=== PATIENT | female | born 1980 | race Caucasian/White ===

== ENCOUNTER 2019-03-24 11:30 | Inpatient (IN) ==
[2019-03-24 12:27] LABS: BASO# 0.03 X1000 (0.0-0.2); BASO% 0.2 % (0.0-0.8); EOS# 0.14 X1000 (0.0-0.7); EOS% 0.9 % (0.0-10.0); HEMATOCRIT 46.1 % (37.0-47.0); IMM GRAN# 0.07 X1000 (0.0-0.04); IMM GRAN% 0.5 % (0.0-0.5); LYMPH# 1.53 X1000 (1.2-3.4); LYMPH% 9.9 % (20.5-51.1); MCH 34.5 PG (27-31); MCHC 34.7 g/dL (33-37); MCV 99.4 FL (81-99); MONO# 0.57 X1000 (0.11-0.59); MONO% 3.7 % (1.7-9.3); MPV 10.1 FL (7.4-10.4); NEUT# 13.11 X1000 (1.4-6.5); NEUT% 84.8 % (42.2-75.2); PLT 174 X1000 (130-400); RBC 4.64 XMIL (4.2-5.4); RDW 13.7 % (11.5-14.5); WBC 15.45 X1000 (4.8-10.8)
[2019-03-24 12:32] LABS: INR 1.08; PROTIME 14.2 Seconds (11.0-16.0)
[2019-03-24 12:33] LABS: PTT 28.9 Seconds (22.3-41.8)
[2019-03-24 12:46] LABS: AGAP 18; ALB/GLOB RATIO 1.6; ALBUMIN 3.9 g/dL (3.5-5.0); ALKALINE PHOSPHATASE 105 U/L (32-104); BUN 18 mg/dL (8-22); CALCIUM 7.8 mg/dL (8.8-10.2); CHLORIDE 97 mmol/L (98-107); CK PROFILE 39 U/L (24-173); COSMO 277; CREATININE 0.7 mg/dL (0.5-0.9); ESTIMATED GFR > 60; GLUCOSE 119 mg/dL (70-104); GOT 42 U/L (10-30); GPT 30 U/L (10-36); POTASSIUM 3.6 mmol/L (3.5-5.1); SODIUM 137 mmol/L (136-145); TCO2 22 mmol/L (25-35); TOTAL PROTEIN 6.3 g/dL (6.3-8.3)
--- NOTE | 2019-03-24 12:47 | Diag Imaging Result Doc PS360 ---
CHEST-1 VIEW - 03/24/2019 INDICATION: sepsis screen COMPARISON: None FINDINGS: The lungs are normally expanded and clear. Heart size and mediastinal contours are normal. No pneumothorax or pleural effusion. IMPRESSION: Negative exam. Electronically signed by Valdez Gonzalez 03/24/2019 12:45 PM
[2019-03-24] MEDS ORDERED: NS 1,000 ML IV ONE ×3 (12:51→15:54)
[2019-03-24] MEDS ORDERED: TORADOL IM ONE (12:51)
[2019-03-24] MEDS ORDERED: ZOFRAN IV ONE (12:51)
[2019-03-24] MEDS ORDERED: ZOSYN 4.5 GM in NS 100 ML IV ONE (12:51)
[2019-03-24] MEDS ORDERED: MORPHINE IV ONE ×2 (12:51→13:51)
[2019-03-24 14:10] LABS: URINE SOURCE CATH
[2019-03-24 14:14] LABS: BILIRUBIN URINE SMALL (NEGATIVE); BLOOD URINE SMALL (NEGATIVE); COLOR ORANGE; GLUCOSE URINE TRACE mg/dL (NEGATIVE); KETONE URINE TRACE mg/dL (NEGATIVE); LEUKOCYTES URINE NEGATIVE (NEGATIVE); NITRITE URINE NEGATIVE (NEGATIVE); PROTEIN URINE 200 mg/dL (NEGATIVE); SP GRAVITY URINE 1.038; TURBIDITY URINE HAZY (CLEAR); UROBILINOGEN URINE 2 mg/dL (NORMAL)
[2019-03-24 14:15] LABS: UR EPITHELIAL CELLS >10 /HPF (<10); URINE BACTERIA NEGATIVE /HPF; URINE RBC <10 /HPF (<10)
[2019-03-24 14:27] LABS: URINE CASTS WHITE CELL PRESENT; URINE CRYSTALS NONE SEEN; URINE SMALL ROUND CELLS TRANS PRESENT; URINE YEAST NONE SEEN
[2019-03-24] MEDS ORDERED: VERSED ONE (14:59)
[2019-03-24] MEDS ORDERED: FENTANYL ONE (14:59)
[2019-03-24] MEDS ORDERED: DIPRIVAN 1% ONE (14:59)
[2019-03-24] MEDS ORDERED: XYLOCAINE-MPF 2% ONE (15:05)
[2019-03-24] MEDS ORDERED: QUELICIN (DOSE) ONE (15:05)
[2019-03-24] MEDS ORDERED: DECADRON ONE (15:05)
[2019-03-24] MEDS ORDERED: ZOFRAN ONE (15:05)
[2019-03-24] MEDS ORDERED: NEO-SYNEPHRINE ONE (15:07)
[2019-03-24] MEDS ORDERED: STERILE WATER INJ. ONE ×2 (15:07→15:10)
[2019-03-24] MEDS ORDERED: NORCURON ONE (15:07)
--- NOTE | 2019-03-24 15:24 | EKG Report ---
Test Performed on : 03/24/2019 12:02:52 PM Test Reason : tachycardia Blood Pressure : / mmHG Vent. Rate : 135 BPM Atrial Rate : 135 BPM P-R Int : 128 ms QRS Dur : 072 ms QT Int : 280 ms P-R-T Axes : 065 061 041 degrees QTc Int : 420 ms Sinus tachycardia. Cannot rule out Anterior infarct , age undetermined Abnormal ECG No previous ECGs available Unconfirmed Result
--- NOTE | 2019-03-24 15:44 | Diag Imaging Result Doc PS360 ---
CT ABD/PELVIS W/IV CONT ONLY - 03/24/2019 INDICATION: RLQ pain with peritonitis COMPARISON: 11/02/2011 FINDINGS: The lung bases are clear and the heart size is normal. There is severe indistinct inflammatory edema centered about the pancreas. There are cholecystectomy clips. There is significant fatty change of the liver. No biliary dilation. Common bile duct measures less than 4 mm. The spleen, adrenals, and kidneys are normal. There is a moderately large amount of pelvic free fluid. No bowel obstruction or inflammation. No free air. Urinary bladder, uterus, and rectum are normal. Bones are intact and well mineralized. IMPRESSION: 1. Severe acute pancreatitis. Indistinct retroperitoneal free fluid and pelvic free fluid. 2. Fatty liver. This exam was performed using automated exposure control, adjustment of mA or kV according to patient size, and/or use of iterative reconstruction technique Electronically signed by Valdez Gonzalez 03/24/2019 3:42 PM
[2019-03-24] MEDS ORDERED: SODIUM CHLORIDE 0.9% INJ ONE ×2 (15:54→17:17)
[2019-03-24] MEDS ORDERED: PEPCID IV ONE (15:54)
--- NOTE | 2019-03-24 16:11 | PROVIDER DOCUMENTATION ---
This chart was entered by Sandie Escobar Scribe, acting as scribe for Eriberto Mike MD. HPI-Abdominal Pain/GI Problem - General Chief Complaint: Abdominal Pain Stated Complaint: STOMACH PAIN Time Seen by Provider: 03/24/19 12:43 Source: patient Allergies/Adverse Reactions: Patient Allergies Allergy/AdvReac Type Severity Reaction Status Date / Time No Known Allergies Allergy Verified 03/24/19 14:13 Home Medications: Home Medication List Medication Instructions Recorded Confirmed Last Taken Type Levothyroxine [Synthroid] 125 microgm PO DAILY 03/24/19 03/24/19 03/23/19 06:00 History Losartan [Cozaar] 50 mg PO DAILY 03/24/19 03/24/19 03/23/19 06:00 History - History of Present Illness-ABD Nature of Presenting Problems: Patient is a 39 year old female who presents with RLQ and suprapubic abdominal pain. States abdominal pain radiates to right lower back. Reports nausea, vomiting, diarrhea, loss of appetite, and chills with pain. States symptoms have been present for 2 days. Denies fever and urinary symptoms. Abdominal Pain Onset Location: reports: RLQ, suprapubic Pain Radiation: reports: back (right lower back) Quality of Pain: reports: cramping, tightness Severity in ED: reports: moderate Onset/Duration: reports: 2 days ago Timing: reports: still present, getting worse Modifying Factors: worse with: breathing, coughing, movement Associated Symptoms: reports: diarrhea, fever/chills (chills), loss of appetite, nausea, vomiting Bruising or Bleeding Gums?: No Similar Symptoms Previously?: Yes Recently seen or treated by another doctor?: No Review of Systems - Adult - REVIEW OF SYSTEMS - ADULT Constitutional: reports: see HPI, chills. denies: fever, fatique Eyes: reports: no symptoms reported Ears, Nose, Mouth & Throat: reports: no symptoms reported Cardiovascular: reports: no symptoms reported Respiratory: reports: no symptoms reported Gastrointestinal: reports: see HPI, abdominal pain (RLQ and suprapubic), diarrhea, nausea, poor appetite, vomiting Genitourinary: reports: no symptoms reported. denies: dysuria, discharge, hematuria Musculoskeletal: reports: see HPI, back pain (right lower back pain). denies: muscle aches, neck pain Integumentary: reports: no symptoms reported Neurological: reports: no symptoms reported Psychiatric: reports: no symptoms reported Endocrine: reports: no symptoms reported Hematologic/Lymphatic: reports: no symptoms reported Allergic/Immunologic: reports: no symptoms reported All Other Systems: Reviewed and Negative Past History - Adult - PAST MEDICAL HISTORY-ADULT Review of Records: reports: Old Records Reviewed, Nursing Assessment Review, Medications Reviewed, Social history reviewed & non-contributory. Major Childhood Illnesses: reports: denies history Cardiovascular: reports: hyperlipidemia Respiratory: reports: asthma Gastrointestinal: reports: denies history Obstetrical/Gynecological: reports: denies history Genitourinary: reports: denies history Musculoskeletal: reports: denies history Neurological: reports: headaches/migraines Psychiatric: reports: denies history Endocrine/Immune: reports: thyroid disorder Other Conditions: reports: denies history - PRIOR SURGERIES/PROCEDURES Surgical/Procedure History: reports: reviewed, not pertinent, cholecystectomy - IMMUNIZATION STATUS Childhood Immunizations: See Nurse Assessment Flu Vaccine: See Nurse Assessment - FAMILY HISTORY Family History: reviewed, not pertinent - SOCIAL HISTORY Smoking: cigarettes, less than 1 pack/day Provider spent 3-5 mins advising pt. on dangers of tobacco.: Discussed manners to quit use, and f/u contacts for add'l counseling. Substance Use: alcohol Alcohol Use Frequency: every day Living Situation: family Physical Exam-General - PHYSICAL EXAM-ADULT Initial Vital Signs Reviewed: Yes - CONSTITUTIONAL General Appearance: alert, moderate distress. negative: lethargic - RESPIRATORY Respiratory: chest non-tender, splinting. negative: respiratory distress, crackles, wheezing, increased rate - CARDIOVASCULAR Cardiovascular: normal peripheral pulses, tachycardia. negative: systolic murmur - GASTROINTESTINAL (ABDOMEN) Abdominal Exam: soft, abnormal bowel sounds (hypo active bowel sounds.), guarding, rebound, tenderness (diffuse). negative: normal bowel sounds - MUSCULOSKELETAL Back Exam: no CVA tenderness. negative: muscle spasm, vertebral tenderness Extremity: normal inspection. negative: deformity, pedal edema - SKIN Integumentary: normal color, normal turgor, warm/dry. negative: diaphoresis, pallor - NEUROLOGIC Neurologic: grossly normal. negative: aphasia, facial droop - PSYCHIATRIC Psych/Mental Status: normal mood/affect, oriented x 3. negative: anxious Progress - PLAN OF CARE/RESULTS Progress/Plan/Lab Results: Vital Signs - 8 hr 03/24/19 11:44 Temperature 98.5 F Pulse Rate 144 H Respiratory Rate 24 Blood Pressure 135/91 O2 Sat by Pulse Oximetry 97 Laboratory Results - last 24 hr 03/24/19 03/24/19 03/24/19 12:12 12:12 12:12 WBC 15.45 H RBC 4.64 Hgb 16.0 Hct 46.1 MCV 99.4 H MCH 34.5 H MCHC 34.7 RDW Std Deviation 13.7 Plt Count 174 MPV 10.1 Immature Gran % (Auto) 0.5 Neut % (Auto) 84.8 H Lymph % (Auto) 9.[address] [place] % (Auto) 3.7 Eos % (Auto) 0.9 Baso % (Auto) 0.2 Immature Gran # (Auto) 0.07 H Neut # (Auto) 13.11 H Lymph # (Auto) 1.53 [facility] # (Auto) 0.57 Eos # (Auto) 0.14 Baso # (Auto) 0.03 PT 14.2 INR 1.08 PTT (Actin FS) 28.9 Sodium 137 Potassium 3.6 Chloride 97 L Carbon Dioxide 22 L Anion Gap 18 BUN 18 Creatinine 0.7 Estimated GFR/1.73 m2 > 60 BUN/Creatinine Ratio 26 Glucose 119 H Calculated Osmolality 277 Calcium 7.8 L Total Bilirubin 2.10 H AST 42 H ALT 30 Alkaline Phosphatase 105 H Creatine Kinase 39 Total Protein 6.3 Albumin 3.9 Globulin 2.4 Albumin/Globulin Ratio 1.6 Orders Category Date Time Status Cardiac Monitoring DIRECTED Care 03/24/19 11:49 Active IV Insertion ORDERED Care 03/24/19 11:49 Active Notify MD of + Sepsis Screen NOW Care 03/24/19 11:49 Active Notify Physician As Ordered Care 03/24/19 11:49 Active CHEST-1 VIEW [RAD] Stat Exams 03/24/19 11:49 Completed BLOOD CULTURE [BLDCUL] Stat Lab 03/24/19 12:12 Ordered CBC WITH DIFF [HEME] Stat Lab 03/24/19 12:12 Completed CK PROFILE [SP CHEM] Stat Lab 03/24/19 12:12 Completed COMPREHENSIVE METABOLIC PANEL [CHEM] Stat Lab 03/24/19 12:12 Completed LACTATE, PLASMA [CHEM] Q3H Lab 03/24/19 12:12 Received LACTATE, PLASMA [CHEM] Q3H Lab 03/24/19 15:00 Uncollected LACTATE, PLASMA [CHEM] Q3H Lab 03/24/19 18:00 Uncollected PROTIME WITH INR [COAG] Stat Lab 03/24/19 12:12 Completed PTT [COAG] Stat Lab 03/24/19 12:12 Completed TROPONIN T Stat Lab 03/24/19 12:12 Received URINALYSIS W/POSS RFLX CULT [URINALYSIS] Stat Lab 03/24/19 11:49 Uncollected Oxygen Device Stat Oth 03/24/19 11:49 Active EKG [EKG] Stat Ther 03/24/19 11:51 Ordered Result Diagrams: 03/24/19 12:12 03/24/19 12:12 - REASSESSMENT Reassessment #1 Time Reassessed: 15:54 Status: other (patient informed Dr. Mike she drinks half a gallon of vodka a week.) Reassessment #2 Time Reassessed: 16:08 Status: improving (GIven pain meds, IVF, zosyn and vanc. Meets criteria for sepsis. Pancreatitis liekly due to alcoholism combined with OTC Prilosec use.) - EKG 1 Time of EKG reading by physician:: 12:02 EKG Read and Signed by:: Eriberto Mike EKG Interpretation (*Must complete 3 of following elements*): Abnormal Rate: 135 Rhythm: sinus tachycardia [place]: normal [place] Interval: normal Comments: NSSTTWC, no STEMI - XRAY 1 XRAY Study: Chest Impression: See EMR Report ( CHEST-1 VIEW - 03/24/2019 INDICATION: sepsis screen COMPARISON: None FINDINGS: The lungs are normally expanded and clear. Heart size and mediastinal contours are normal. No pneumothorax or pleural effusion. IMPRESSION: Negative exam. Electronically signed by Valdez Gonzalez 03/24/2019 12:45 PM 03/24/19 [id number] Interpreting Physician: Valdez Gonzalez MD Dictated Date/Time: 03/24/19 8913 cc: Eriberto Mike MD; Silvino Terrell MD) - CT/MRI 1 CT Study: Abdomen, Pelvis Impression: See EMR Report ( CT ABD/PELVIS W/IV CONT ONLY - 03/24/2019 INDICATION: RLQ pain with peritonitis COMPARISON: 11/02/2011 FINDINGS: The lung bases are clear and the heart size is normal. There is severe indistinct inflammatory edema centered about the pancreas. There are cholecystectomy clips. There is significant fatty change of the liver. No biliary dilation. Common bile duct measures less than 4 mm. The spleen, adrenals, and kidneys are normal. There is a moderately large amount of pelvic free fluid. No bowel obstruction or inflammation. No free air. Urinary bladder, uterus, and rectum are normal. Bones are intact and well mineralized. IMPRESSION: 1. Severe acute pancreatitis. Indistinct retroperitoneal free fluid and pelvic free fluid. 2. Fatty liver. This exam was performed using automated exposure control, adjustment of mA or kV according to patient size, and/or use of iterative reconstruction technique Electronically signed by Valdez Gonzalez 03/24/2019 3:42 PM 03/24/19 1542 Interpreting Physician: Valdez Gonzalez MD Dictated Date/Time: 03/24/19 1527 cc: Eriberto Mike MD; Silvino Terrell MD) - CONSULTS/PCP/HOSPITALIST Notification #1 *Consult/PCP/Hospitalist*: Mynor Time Discussed: 14:03 Consult Disposition: Will see in ED #2 Consult: Dr. Lowe Time Discussed: 15:48 Reason/Comments: Dr. Mike consulted with Dr. Lowe about patient. Consult Disposition: other (Mynor states admit patient to hospitalist service and he will consult.) #3 Consult: MARLIN Guevara for Hospitalist Time Discussed: 16:02 Reason/Comments: Dr. Mike consulted with [place] about patient Consult Disposition: Will see in ED, Admit Departure - Departure Date of Disposition Decision: 03/24/19 Time of Disposition Decision: 16:03 DIAGNOSIS: Severe acute pancreatitis, Alcoholism, chronic, Continuous severe abdominal pain, Sepsis with organ dysfunction Disposition: ADMITTED INPATIENT 09 Certified Medical Emergency: Emergent Condition: Serious Referrals and Follow-Ups: Silvino Terrell MD [Primary Care Provider] - - Critical Care Note This patient required my direct & personal management of CC.: Yes Total Time (mins): 42 (MULT PHYSICIAN CONSULTS, mult visits to bedside, evaluation/treatment of sepsis.) Critical Care Statement: This patient required my direct personal management to treat or rule out processes, the absence of which, could potentiallly result in sudden, clinically significant life or limb threatening deterioration. Attestation - Physician/ EMMETT Attestation Patient care was provided by Advanced Practice Provider:: No The physician spent face to face time with patient:: Yes Advanced Practice Provider documentation review:: Supervising physician onsite and consulted in the evaluation and care of this patient. The physician did have a face to face encounter with the patient. This chart was documented by the indicated scribe, (Sandie Escobar Scribe) and accurately reflects the services I performed and decisions made by me, Eriberto Mike MD, as attested by the provider's signature.
[2019-03-24] MEDS ORDERED: CALCIUM GLUCONATE 1 GM in NS 50 ML IV ONE (17:41)
--- NOTE | 2019-03-24 17:45 | CONSULTATION ---
DATE OF CONSULTATION: 03/24/2019 HISTORY OF PRESENT ILLNESS: Ms. Barbara Pettit is a 39-year-old white female who presented to our emergency department with at least a 2-day history of abdominal pain. It began periumbilical and has really localized to her lower abdomen and she seemed to be quite tender in right lower quadrant. I was initially asked to see her by our emergency department physician because of her tender abdomen. She has had a cholecystectomy and when I first examined her, it was before her CT scan. We were worried about her right lower quadrant pain. A CT scan suggests acute pancreatitis. MEDICATIONS: Synthroid 125 mcg p.o. daily and Cozaar 50 mg p.o. daily. ALLERGIES: No known drug allergies. SOCIAL HISTORY: Her was at the bedside. He works in construction and [employer]. PAST MEDICAL HISTORY: Hypothyroidism, migraines, hyperlipidemia. PHYSICAL EXAMINATION: General: On exam, Ms. Barbara Pettit is a younger white female who has obvious abdominal discomfort but she is in no acute distress. Vital signs: Her heart rate was 144, blood pressure 135/91, O2 saturation 97%. She was afebrile. Skin: She had no jaundice. HEENT: No oral lesions. Lymphatic: No cervical or supraclavicular lymphadenopathy. Heart: Regular rate. Lungs: Clear to auscultation and percussion bilaterally. Abdomen: Mostly soft but it did appear to be tender in her lower abdomen, especially right lower abdomen. She had no evidence of a hernia. There was no palpable mass. She did have bilateral costovertebral tenderness. /Rectal: Rectal and vagina exams were not performed. Extremities: She does have palpable peripheral pulses. No peripheral edema. Neurological: No focal deficits. LABORATORY: Her white blood cell count was elevated to 15.4, hematocrit 46%. Her total bilirubin was 2.10, but the rest of her liver function tests were essentially normal. Her BUN and creatinine are [address] scan was performed and reports significant fatty change of the liver, clips around the gallbladder fossa consistent with previous gallbladder surgery. It was felt that she had severe acute pancreatitis with retroperitoneal fluid and pelvic free fluid. There was no evidence of bowel obstruction or inflammation, no free air. PLAN: I spoke with our emergency department physician, Dr. Mike, and asked that he have our hospitalist evaluate the patient for admission and certainly I will follow with them. It must be noted that her lipase was only 204. Amylase was not all that elevated. I do feel that she needs to be n.p.o., IV fluid resuscitation with pain control. It must be noted that she also may have a history of alcohol abuse. cc: Kylah Lowe MD
[2019-03-24] MEDS: DILAUDID IV PRN ×2 (18:11→21:27)
--- NOTE | 2019-03-24 18:20 | HISTORY AND PHYSICAL ---
PRIMARY CARE PROVIDER: Silvino Terrell MD CHIEF COMPLAINT: Abdominal pain. HISTORY OF PRESENT ILLNESS: Ms. Pettit is a 39-year-old female, who carries a past medical history of hypertension and hypothyroidism, who reports to the ED since having severe abdominal pain since Monday. This has mainly been in her lower abdomen and radiating to her back, constant. It also exacerbates with a deep breath, walking, or moving around, associated with nausea/vomiting x4 on Monday, 4 episodes of diarrhea on Monday and small amounts on Monday, loss of appetite. She is only able to tolerate water. She tried some Powerade and it burned her esophagus too bad. She has had some chills, but no fever. She has also been trying to increase her antacid intake. Workup in the ED revealed a white count of 15. AST of 42. Lipase of 207, amylase of 74. Two plasma lactates were negative. Serum alcohol level was 0. Total bilirubin was 2.10, alkaline phosphatase 105. Abdomen and pelvis CT revealed severe acute pancreatitis, indistinct retroperitoneal free fluid, and pelvic free fluid, fatty liver. She was originally given Aleve, vancomycin, and Zosyn for suspected appendicitis and a 2 L fluid bolus. We will continue with aggressive IV hydration. We will place her on a clear liquid diet, IV pain regimen and antiemetics and IV Protonix for acid reflux and Ativan for any withdrawals. There is a consult for General Surgery and Gastroenterology. PAST MEDICAL HISTORY: 1. Alcohol use. The patient drinks 1 L of vodka a week. Prior to 2 months ago, she was drinking 2 L per week. 2. Hyperlipidemia on no medications. 3. Asthma, rescue inhaler. 4. Migraines. 5. Hypertension. 6. Hypothyroidism. PAST SURGICAL HISTORY: 1. Cholecystectomy. 2. Endometrial ablation. 3. Left shoulder surgery. 4. Left knee surgery. FAMILY HISTORY: Father with diabetes. SOCIAL HISTORY: She smokes 10 cigarettes a day and has done so for 8 years. She drinks 1 L of vodka per week; prior to 2 months ago, she was drinking a 2 L of vodka per week. She is with 2 children. No marijuana. No illicit drug use. No known drug allergies. HOME MEDICATIONS: 1. Synthroid 125 mcg p.o. daily. 2. Losartan 50 mg p.o. daily. 3. [id number] ibuprofen. 4. Excedrin. 5. Antacid. REVIEW OF SYSTEMS: A 12 point review of systems was complete and negative except for those mentioned in HPI. PHYSICAL EXAMINATION: VITAL SIGNS: Temperature was 98.5 degrees, heart rate 101, respirations 19, blood pressure 123/83, O2 is 98% on room air. GENERAL: Ms. Pettit is a 39-year-old female, who is sitting up in the bed in no acute distress. HEENT: Atraumatic, normocephalic. PERRL. NECK: Supple trachea midline. CARDIOVASCULAR: S1, S2 appreciated. No murmurs, gallops, rubs noted. RESPIRATORY: Lung sounds clear bilaterally. GASTROINTESTINAL: Extremely tender to palpation, especially to the left upper quadrant and continues to be tender in the right upper and right and left lower quadrants. EXTREMITIES: Negative for edema. Moves all extremities well. NEUROLOGIC: No focal deficits noted. DIAGNOSTIC DATA: Abdomen and pelvis CT showed severe acute pancreatitis, indistinct retroperitoneal free fluid, and pelvic free fluid. Fatty liver. Chest x-ray: Negative exam. White count 15, hemoglobin 16, hematocrit 46, platelet count is 174,000. Sodium 137, potassium 3.6, BUN 18, creatinine 0.7, blood glucose is 119, calcium is 7.8, total bilirubin 2.10, AST 42, ALT 30, alkaline phosphatase 105. Amylase 74, lipase 207. Plasma lactate 2, repeat 1.1. Urinalysis is negative for bacteria, negative for nitrites. Alcohol level 0. ASSESSMENT AND PLAN: 1. Acute severe pancreatitis with indistinct retroperitoneal free fluid and pelvic free fluid. She has been given a dose of IV antibiotics. We will continue with IV antibiotics, aggressive IV resuscitation, antiemetics, pain regimen. Continue alcohol cessation discussion. 2. Hypocalcemia. We will give her 1 g calcium gluconate. 3. Abdominal pain, nausea/vomiting, and diarrhea secondary to #1. 4. Alcohol use. The patient drinks 1 L of vodka per week; prior to 2 months ago, she was drinking 2 L per week. We will need to continue discussions of alcohol cessation. 5. Tobacco use. The patient smokes 10 cigarettes per day and has done so for 8 years. We will continue smoking cessation discussions. 6. Hypertension. 7. Hypothyroidism. We will continue IV Synthroid. 8. Gastroesophageal reflux disease, gastritis. We will continue with IV proton pump inhibitor. Further recommendations to follow physician evaluation and laboratory and diagnostic data. Dictated by MARLIN Flores for Dana Pang MD cc: MD Silvino Barrera MD I performed a face to face encounter on the patient. I reviewed all labs and imaging on the patient. I agree with the H&P as dictated. is a 39 year old female with a history of hypothyroidism, alcohol abuse, and tobacco dependence who presented to the ER with a chief complaint of nausea and vomiting associated with epigastric pain. On exam, the patient was alert and oriented x 4. Her lung sounds are clear to auscultation bilaterally. She has positive bowel sounds with epigastric tenderness. The patient was noted to have a lipase of 207. The patient will be admitted to the medical service on telemetry. Will make the patient NPO and start IV fluids, prn antiemetics and pain medication. TETED
[2019-03-24] MEDS: ZOFRAN IV PRN (18:24)
[2019-03-24] MEDS ORDERED: NS 0 ML ONE (19:34)
[2019-03-24] MEDS: ZOSYN 3.375 GM in NS 50 ML IV SCH (20:29)
[2019-03-24] MEDS: ATIVAN IV PRN (21:27)
[2019-03-25] MEDS: NS 1,000 ML IV SCH ×3 (00:25→14:48)
[2019-03-25] MEDS: DILAUDID IV PRN ×7 (00:25→20:52)
[2019-03-25] MEDS: ZOSYN 3.375 GM in NS 50 ML IV SCH ×4 (01:20→20:33)
[2019-03-25] MEDS: PROTONIX IV SCH (06:10)
[2019-03-25 07:02] LABS: HEMATOCRIT 32.6 % (37.0-47.0); MCHC 33.7 g/dL (33-37); MCV 103.8 FL (81-99); MPV 10.1 FL (7.4-10.4); RBC 3.14 XMIL (4.2-5.4); RDW 13.7 % (11.5-14.5); WBC 11.5 X1000 (4.8-10.8)
[2019-03-25 07:45] LABS: AGAP 14; ALB/GLOB RATIO 1.2; ALBUMIN 2.9 g/dL (3.5-5.0); ALKALINE PHOSPHATASE 74 U/L (32-104); BUN 14 mg/dL (8-22); CHLORIDE 100 mmol/L (98-107); COSMO 271; CREATININE 0.6 mg/dL (0.5-0.9); ESTIMATED GFR > 60; GLUCOSE 79 mg/dL (70-104); GOT 25 U/L (10-30); GPT 17 U/L (10-36); POTASSIUM 3.2 mmol/L (3.5-5.1); SODIUM 136 mmol/L (136-145); TCO2 22 mmol/L (25-35); TOTAL BILIRUBIN 1.25 mg/dL (0.20-1.00); TOTAL PROTEIN 5.4 g/dL (6.3-8.3)
[2019-03-25] MEDS ORDERED: POTASSIUM CHLORIDE 60 MEQ in NS 500 ML IV ONE (07:45)
[2019-03-25] MEDS ORDERED: CALCIUM GLUCONATE 1 GM in NS 50 ML IV ONE (07:46)
[2019-03-25 07:47] LABS: CALCIUM 6.3 mg/dL (8.8-10.2)
[2019-03-25] MEDS: SYNTHROID IV SCH ×2 (08:03→08:15)
[2019-03-25 08:09] LABS: MAGNESIUM 1.3 mg/dL (1.5-2.7); PHOSPHORUS 1.5 mg/dL (2.7-4.5)
--- NOTE | 2019-03-25 08:42 | PROGRESS NOTE ---
DATE: 03/25/2019 Ms. Barbara Pettit is a 39-year-old white female who was admitted through the emergency department with acute pancreatitis. She has had her gallbladder removed. She does have a history of possible alcohol abuse. This morning, clinically she looks better. She still has mid abdominal belt-like pain. Her abdomen is mostly soft. Her heart rate is 101, blood pressure 126/86, O2 saturation 99%, she is afebrile. Her white blood cell count has improved from 15 to 11. She is on IV Zosyn. She is n.p.o. She is receiving IV fluids and medicine as needed for pain control. I agree with continued supportive care for acute pancreatitis. cc: Kylah Lowe MD
[2019-03-25] MEDS ORDERED: MAGNESIUM SULFATE 4 GM/S.W.I. 4 GM/100 ML IVPB IV ONE (09:43)
[2019-03-25] MEDS: ZOFRAN IV PRN ×3 (09:50→20:51)
[2019-03-25] MEDS ORDERED: ZOSYN ONE (15:40)
--- NOTE | 2019-03-25 19:20 | GASTROENTEROLOGY CONSULTATION ---
DATE: 03/25/2019 REASON FOR CONSULTATION: Abdominal pain, pancreatitis. HISTORY OF PRESENT ILLNESS: This is a 39-year-old female who reports onset of symptoms on Monday night. She states she woke up with severe abdominal pain. She had episodes of nausea and vomiting on Monday along with diarrhea. She has received pain medication which has helped with some of her pain. She is currently tolerating sips of water and ice chips. During evaluation, she had an abdominal pelvis CT scan that showed severe acute pancreatitis with indistinct retroperitoneal free fluid and pelvic free fluid along with noted fatty liver. On admission her amylase and lipase was 74 and 207. Today her lipase is 119. Patient does report alcohol use. At one point, she had been using more alcohol than usual. She has recently tried decreasing her use but still reports drinking at least a liter of vodka per week. This is usually done on the weekends. She does report tobacco use about 10 cigarettes a day. She has a history of cholecystectomy in 2012. She does not see a director sales and marketing currently. She states in 2002 she was in a study for irritable bowel syndrome and had a colonoscopy at that time. She has reported recent appetite loss and weight loss. Actually it has been ongoing since her gallbladder was removed. She has had issues with diarrhea with certain things she eats. PAST MEDICAL HISTORY: Hyperlipidemia, no current medications, asthma, migraines, hypertension, hypothyroidism, alcohol use. PAST SURGICAL HISTORY: Cholecystectomy, endometrial atrial ablation, left shoulder surgery, left knee surgery. ALLERGIES: No known drug allergies. HOME MEDICATIONS: Synthroid 125 mcg daily, Cozaar 50 mg daily. SOCIAL HISTORY: She smokes 10 cigarettes a day. She drinks 1 L of vodka per week usually on the weekends. She is . She has 2 children. REVIEW OF SYSTEMS: Per history of present illness. PHYSICAL EXAMINATION: Vital Signs: Temperature 98.3 degrees, pulse 97, respirations 16, blood pressure 123/80. General: Patient is awake, alert, in no acute distress. She does still complain of some abdominal pain. HEENT: Normocephalic, atraumatic. Pupils equal, round, reactive to light. Sclerae nonicteric. Cardiovascular: Regular rate and rhythm. Respiratory: Lung sounds clear. Gastrointestinal: Patient is tender with palpation. Otherwise abdomen is soft. Extremities: No lower extremity edema noted. Neurological: Cranial nerves 2-12 grossly intact. Patient is awake, alert, oriented to person, place, and time. DIAGNOSTIC RESULTS: Laboratory. Hematology. WBC 11.50, this is down from 15.45 on admission, hemoglobin 11.0, hematocrit 32.6, MCV 103.8, platelet 132,000. Coagulation, pro time 14.2, INR 1.01, PTT 28.9. Chemistry, sodium 136, potassium 3.2, chloride 100, CO2 of 22, BUN 14, creatinine 0.6, glucose 79, calcium 6.3, phosphorus 1.5, magnesium 1.3, total bilirubin 1.25, AST 25, ALT 17, alkaline phosphatase 74, lipase 119. Imaging. CT scan of the abdomen and pelvis showed severe acute pancreatitis with indistinct retroperitoneal free fluid and pelvic free fluid along with fatty liver. ASSESSMENT AND PLAN: 1. Acute pancreatitis. Continue symptomatic treatment, supportive care. We will allow clear liquids if she is able to tolerate. Would repeat amylase and lipase tomorrow. According to Hammett criteria findings are consistent with mild pancreatitis. Will continue current management and symptomatic treatment. Would check triglyceride and cholesterol levels. 2. Electrolyte imbalance with recent replacement. 3. Alcohol use. Patient has been advised to avoid all alcohol and also smoking cessation. Continue PPI. Continue p.r.n. medications for pain and nausea. We will allow clear liquids if patient tolerates. Repeat amylase and lipase in the morning. Further plans to be made according to her progress. I have discussed this case with Dr. Jason. Thank you for this consultation. Dictated by MARLIN Tee for Bijan Jason MD cc: MARLIN Garzon MD [facility]
[2019-03-25 20:55] LABS: MAGNESIUM 2.7 mg/dL (1.5-2.7); PHOSPHORUS 1.5 mg/dL (2.7-4.5); POTASSIUM 3.5 mmol/L (3.5-5.1)
[2019-03-25] MEDS ORDERED: POTASSIUM PHOSPHATE 50 MMOL in NS 250 ML IV ONE (21:01)
[2019-03-25] MEDS: ATIVAN IV PRN (22:01)
[2019-03-25] MEDS: LOVENOX SUBQ SCH (22:10)
[2019-03-26] MEDS: NS 1,000 ML IV SCH ×3 (00:28→18:12)
[2019-03-26] MEDS: DILAUDID IV PRN ×7 (01:21→22:37)
[2019-03-26] MEDS: ZOFRAN IV PRN (01:22)
[2019-03-26] MEDS: ZOSYN 3.375 GM in NS 50 ML IV SCH ×3 (01:59→15:39)
--- NOTE | 2019-03-26 03:55 | PROGRESS NOTE ---
DATE: 03/25/2019 SUBJECTIVE: The patient states that she is still having some mild epigastric pain and complains of back pain that is chronic. OBJECTIVE: Vital Signs: Temperature 98.8 degrees, blood pressure 131/85, heart rate 98, respirations 20, O2 saturation 97% on room air. General: This is a middle-aged female lying in bed, in no acute distress. Heart: S1, S2, normal. Tachycardic. Lungs: Clear to auscultation bilaterally. No wheezing. No rales. Abdomen: Positive bowel sounds. Soft, nontender, nondistended. Extremities: No edema, no cyanosis. Neurologic: The patient is alert and oriented x3. LABS: White blood cell count 11, hemoglobin 11, hematocrit 32, platelets 132,000. Sodium 136, potassium 3.2, chloride 100, CO2 22, BUN 14, creatinine 0.6, glucose 79, calcium 6.3, phosphorus 1.5, magnesium 1.3, lipase 119. ASSESSMENT AND PLAN: 1. Acute pancreatitis. The patient will be started on a clear liquid diet. We will monitor her response closely. Continue with intravenous fluids and p.r.n. antiemetics and pain medication. 2. Alcohol abuse. The patient has been counseled about cessation. 3. Hypothyroidism. Continue on Synthroid. 4. Chronic back pain. Aware. 5. Gastroesophageal reflux disease. Continue on Protonix. 6. Deep vein thrombosis prophylaxis. We will start the patient on Lovenox. cc: Dana Pang MD
[2019-03-26] MEDS: ATIVAN IV PRN ×2 (06:36→15:39)
[2019-03-26] MEDS: PROTONIX IV SCH (06:37)
[2019-03-26] MEDS: SODIUM CHLORIDE 0.9% INJ SCH (06:37)
[2019-03-26 07:23] LABS: AGAP 12; ALB/GLOB RATIO 1.3; ALBUMIN 3.2 g/dL (3.5-5.0); ALKALINE PHOSPHATASE 132 U/L (32-104); BUN 5 mg/dL (8-22); CHLORIDE 100 mmol/L (98-107); COSMO 268; CREATININE 0.5 mg/dL (0.5-0.9); ESTIMATED GFR > 60; GLUCOSE 84 mg/dL (70-104); GOT 22 U/L (10-30); GPT 16 U/L (10-36); POTASSIUM 4.1 mmol/L (3.5-5.1); SODIUM 136 mmol/L (136-145); TCO2 24 mmol/L (25-35); TOTAL BILIRUBIN 0.92 mg/dL (0.20-1.00); TOTAL PROTEIN 5.7 g/dL (6.3-8.3)
[2019-03-26 07:26] LABS: MAGNESIUM 2.6 mg/dL (1.5-2.7); PHOSPHORUS 3.2 mg/dL (2.7-4.5)
[2019-03-26 07:28] LABS: BASO# 0.03 X1000 (0.0-0.2); BASO% 0.3 % (0.0-0.8); EOS# 0.29 X1000 (0.0-0.7); EOS% 2.8 % (0.0-10.0); HEMATOCRIT 33.1 % (37.0-47.0); HEMOGLOBIN 10.8 g/dL (12.0-16.0); IMM GRAN# 0.03 X1000 (0.0-0.04); IMM GRAN% 0.3 % (0.0-0.5); LYMPH# 1.31 X1000 (1.2-3.4); LYMPH% 12.5 % (20.5-51.1); MCH 33.6 PG (27-31); MCHC 32.6 g/dL (33-37); MCV 103.1 FL (81-99); MONO# 0.74 X1000 (0.11-0.59); MPV 9.8 FL (7.4-10.4); NEUT% 77.1 % (42.2-75.2); PLT 181 X1000 (130-400); RBC 3.21 XMIL (4.2-5.4); RDW 13.2 % (11.5-14.5)
[2019-03-26 08:11] LABS: CALCIUM 7.1 mg/dL (8.8-10.2)
--- NOTE | 2019-03-26 10:38 | PROGRESS NOTE ---
DATE: 03/26/2019 Barbara Pettit clinically, on a daily basis, seems to be improving. She still has some belt-like abdominal pain. She has been placed on liquids. She remains on IV antibiotics. She has been walking the halls. Her lipase is trending downward. It is 62 today. Her triglycerides remain high. BUN and creatinine are 5 and 0.5. Her white blood cell count is now normal, hematocrit is 33%. Her heart rate is 93, blood pressure 117/75, O2 saturation 96%. T-max is 99.0 degrees. PLAN: I agree with slowly introducing a diet because of her pancreatitis. She is on IV antibiotics prophylactically. Her white blood cell count is now normal. She is still tachycardic with some ongoing abdominal pain. She has been good about getting up out of bed. cc: Kylah Lowe MD
[2019-03-26] MEDS: LOVENOX SUBQ SCH (21:18)
[2019-03-26] MEDS: ULTRAM PO PRN (21:19)
--- NOTE | 2019-03-26 22:17 | PROGRESS NOTE ---
DATE: 03/26/2019 SUBJECTIVE: No acute events overnight. She has been eating better. She denies any nausea or vomiting today. Her abdominal pain is better as well. I discussed with her about acute pancreatitis, probably alcohol contributing to it, and I counseled her about stopping drinking. I answered all of their questions. The patient's family is also at the bedside. VITALS SIGNS: Temperature 98.2 degrees, pulse 101, respiratory 18, blood pressure 119/71, saturating 97% on room air. OBJECTIVE: Vital Signs: Not in any acute distress. HEENT: Oral cavity is moist. Lungs: Air entry equal. No wheeze, rhonchi or crackles. Cardiovascular: S1, S2 normal. No murmur or gallop. Abdomen: Soft. Mild epigastric left lower quadrant tenderness. No rebound, rigidity or guarding. Active bowel sounds. Extremities: No lower extremity edema. Neurologic: She is alert and oriented x3. LABORATORY DATA: Suggestive of resolution of leukocytosis, macrocytic anemia. Normal platelet count. Normal electrolytes. MICROBIOLOGY: No positive microbiological data. IMAGING: No new imaging. ASSESSMENT AND PLAN: 1. Acute alcoholic pancreatitis. Continue intravenous fluids. Advance diet. I will stop intravenous opioid medications soon and start transitioning her to oral opioid medications. She was counseled about alcohol cessation 2. Others. Continue Synthroid for hypothyroidism, proton pump inhibitors for chronic GERD, and enoxaparin for DVT prophylaxis. DISPOSITION: The patient continues to do well. My plan is to discharge her in the next 24 hours. Plan of care discussed with her, all of her questions have been answered. cc: Jarvis Trejo MD
[2019-03-27] MEDS: DILAUDID IV PRN (01:48)
[2019-03-27] MEDS: NS 1,000 ML IV SCH (01:51)
[2019-03-27] MEDS ORDERED: FLU VACCINE IM ONE (02:05)
[2019-03-27] MEDS: ULTRAM PO PRN (04:22)
--- NOTE | 2019-03-27 05:19 | GASTROENTEROLOGY PROGRESS NOTE ---
DATE: 03/26/2019 SUBJECTIVE: Patient is awake and alert at the time of my evaluation. She states she does feel a little better. She has tolerated a clear liquid diet. She still reports some abdominal pain, and is still requiring pain medication. She states her pain seemed to be worse at night. She is hungry, and would like to try an advancement in her diet. OBJECTIVE: Vital Signs: Temperature 98.2 degrees, pulse 101, respirations 18, and blood pressure 119/71. General: Patient is awake and alert in no acute distress. Abdomen: Soft with some tenderness with palpation. Otherwise, positive bowel sounds. LABORATORY: Hematology: WBC 10.50, hemoglobin 10.8, hematocrit 33.1, MCV 103.1, and platelet 181,000. Chemistry: Sodium 136, potassium 4.1, chloride 100, CO2 24, BUN 5, creatinine 0.5, glucose 84, calcium 7.1 phosphorus 3.2, magnesium 2.6, total bilirubin 0.92. AST 22, ALT 16, alkaline phosphatase 132, and lipase 62. ASSESSMENT AND PLAN: 1. Acute pancreatitis. Patient has tolerated a clear liquid diet. We will see how she does with a full liquid diet. Further plans to be made as needed. 2. Alcohol abuse. Patient has been counseled on alcohol and tobacco cessation. 3. We will advance diet to full liquid diet. Further plans to be made as needed. Continue symptomatic treatment for pain and nausea. Again, the patient has been counseled on smoking cessation and alcohol cessation. I have discussed this case with Dr. Jason. Dictated by MARLIN Tee for Bijan Jason MD cc: MARLIN Garzon MD
[2019-03-27] MEDS: PROTONIX IV SCH ×2 (05:55→08:04)
[2019-03-27] MEDS: SODIUM CHLORIDE 0.9% INJ SCH (05:56)
[2019-03-27] MEDS ORDERED: TYLENOL PO PRN (07:37)
[2019-03-27] MEDS: OXY IR PO PRN ×2 (09:11→13:14)
[2019-03-27 11:51] VITALS: BP 125/79
--- NOTE | 2019-03-27 22:47 | GASTROENTEROLOGY PROGRESS NOTE ---
DATE: 03/27/2019 SUBJECTIVE: The patient was sitting up in her bed in no acute distress. She states she is feeling better. She has tolerated advancement in her diet to a GI soft diet. She states she ate a good breakfast. She still reports some abdominal pain that radiates to her back, especially on the right side. Pain reported on pain scale as a 5. Her pain medication has been changed from IV Dilaudid to oral medication, oxycodone extended-release. The patient states that has controlled her pain adequately. OBJECTIVE: Vital signs: Temperature 98.5 degrees, pulse 94, respirations 16, blood pressure 125/79. LABORATORY DATA: Hematology from 03/26/2019: WBC 10.50, hemoglobin 10.8, hematocrit 33.1, MCV 103.1, platelets 181,000. Chemistry: Sodium 136, potassium 4.1, chloride 100, CO2 is 24, BUN 5, creatinine 0.5, glucose 84, calcium 7.1, phosphorus 3.2, magnesium 2.6, total bilirubin 0.92, AST 22, ALT 16, alkaline phosphatase 132, lipase on 03/26/2019 was 62. ASSESSMENT AND PLAN: 1. Acute pancreatitis. Her abdominal pain is improving. 2. Alcohol abuse. The patient has been counseled on alcohol cessation. 3. Tobacco abuse. The patient has been counseled on tobacco cessation. The patient's symptoms have improved and she has tolerated a gastrointestinal soft diet. Continue current medications. Hopefully she will be able to be discharged soon. I have recommend she follow up with us as an outpatient. I am giving her contact information. Again, I have counseled her on smoking cessation and alcohol cessation. Further plans to be made according to her progress. I have discussed this case with Dr. Jason. Dictated by MARLIN Tee for Bijan Jason MD cc: MARLIN Garzon MD
--- NOTE | 2019-03-28 13:54 | DISCHARGE SUMMARY ---
ADMISSION DATE: 03/24/2019 DISCHARGE DATE: 03/27/2019 DISCHARGE DISPOSITION: Home. DISCHARGE CONDITION: Hemodynamically stable. She has been able to tolerate a GI soft diet without any nausea or vomiting. Her abdominal pain is better than it was before. She is needing some opioid medications for that. DISCHARGE DIAGNOSES: Alcohol induced acute pancreatitis. OTHER DIAGNOSES: 1. Hypothyroidism. 2. Chronic gastroesophageal reflux disease. 3. Alcohol use disorder of about 1 L of vodka a week. 4. Intermittent asthma. 5. Hypocalcemia. DISCHARGE MEDICATIONS: 1. Losartan 50 mg daily for hypertension. 2. Levothyroxine 125 mcg daily. 3. Oxycodone immediate release 5 mg every 6 hours as needed for pain 20 tablets have been prescribed. 4. Acetaminophen 1000 mg every 8 hours 15 tablets have been prescribed. VITALS: At the time of discharge. Temperature 98.5 degrees, pulse 94, respiratory rate 16, blood pressure 125/79 and saturating 96% on room air. PHYSICAL EXAMINATION: General: Does not appear in acute distress. HEENT: Oral cavity is moist. Lungs: Air entry bilaterally equal. No wheeze, rhonchi or crackles. Heart: S1, S2 normal. No murmur or gallop. Abdomen: Soft. Mild tenderness in right lower quadrant. No rebound or rigidity. Active bowel sounds. Extremities: No lower extremity edema. Neurologic: She is alert and oriented x3. SIGNIFICANT LABS: [place], [place] [address] which had improved to 10,000 at time of discharge. Her hemoglobin was 16 on presentation which had improved to 10.8. Her platelet count is 181,000. Her potassium is 4.1, BUN 5, creatinine 0.5, calcium is 7.1, which improved from 6.3. On presentation, she did have a lipase of 207, which improved to 62 at the time of discharge. MICROBIOLOGY: Urine culture and blood culture did not have any growth. IMAGING: Chest x-ray on admission did not have any acute cardiopulmonary process. Abdomen and pelvis CT had severe acute pancreatitis, indistinct retroperitoneal free fluid and pelvic free fluid and fatty liver. Electrocardiogram on presentation had sinus tachycardia. HOSPITAL COURSE SUMMARY: Ms. Pettit is a 39-year-old lady who initially presented on 03/24/2019 for abdominal pain. Apparently, the patient drinks 1 L of vodka in about 1 weeks time. However since last week or so, she has been drinking 2 L of vodka in a week's time. With that, she suddenly started experiencing an abdominal pain located in the periumbilical region and lower abdomen radiating to her back exacerbated by deep breath, walking or moving around, associated with nausea and vomiting of about 4 episodes, and 4 episodes of diarrhea. She was not able to have any oral intake so she presented to the emergency room. In the ER, she was found to have leukocytosis of 15,000, lipase of 207 and tachycardia. The hospitalist team was consulted for further management. CT scan of the abdomen and pelvis was detected detecting acute pancreatitis. The patient was started on intravenous fluids and intravenous antibiotics. However, the blood and urine culture came negative so the antibiotics were stopped. With intravenous fluids, her condition had improved. She was slowly started on liquid diet which was advanced, and her IV opioid medication was transitioned to oral. At the time of discharge, she was counseled about alcohol cessation. She is able to take oral intake adequately. She was provided instructions to take softer diet for 48 hours before advancing it. She has been tolerating the diet without nausea and vomiting. She had a bowel movement. It was decided to discharge her, and have outpatient GI followup. More than 30 minutes time were spent on this patient. Discharge instructions were talked with and provided to patient in detail. cc: Jarvis Trejo MD
== END 2019-03-27 15:33 | disposition home or self-care (01) | DRG 440 ==
LOC: ED 11:30 → EDIPHOLD 17:59 → SUATTDRO 17:59 → 4N 19:41
PROVIDERS: ATTEND Internal Medicine